=== PATIENT | male | born 1965 | race African-American/Black ===

== ENCOUNTER 2024-04-24 12:48 | Inpatient (IN) | payer OTHER ==
[2024-04-24 13:19] VITALS: BMI 29.8
[2024-04-24] MEDS ORDERED: NALOXONE HCL 0.4 MG/ML VIAL IM PRN (13:41)
[2024-04-24] MEDS ORDERED: MAGNESIUM HYDROX 2400MG/30ML ORAL SUSPENSION 30 ML CUP PO PRN (13:41)
[2024-04-24] MEDS ORDERED: BENZONATATE 200 MG CAPSULE PO PRN (13:41)
[2024-04-24] MEDS ORDERED: BISMUTH SUBSALICYLATE 524 MG/30 ML PO PRN (13:41)
[2024-04-24] MEDS ORDERED: DICYCLOMINE HCL 10 MG CAPSULE PO PRN (13:41)
[2024-04-24] MEDS ORDERED: ACETAMINOPHEN 325 MG TABLET (FP) PO PRN (13:41)
[2024-04-24] MEDS ORDERED: NALOXONE (NARCAN) HCL 4 MG/0.1 ML SPRAY NS PRN (13:41)
[2024-04-24] MEDS ORDERED: POLYETHYLENE GLYCOL (HEALTHYLAX) 3350 17 GM PACKET PO PRN (13:41)
[2024-04-24] MEDS ORDERED: LOPERAMIDE HCL 2 MG CAPSULE PO PRN (13:41)
[2024-04-24] MEDS ORDERED: IBUPROFEN 400 MG TABLET (FP) PO PRN (13:41)
[2024-04-24] MEDS ORDERED: MAG HYDROX/AL HYDROX/SIMETH 30 ML UNIT-DOSE CUP PO PRN (13:41)
[2024-04-24] MEDS ORDERED: IBUPROFEN 600 MG TABLET (FP) PO PRN (13:41)
[2024-04-24] MEDS ORDERED: ONDANSETRON *ODT* 4 MG TABLET SL PRN (13:41)
[2024-04-24] MEDS: METHOCARBAMOL 500 MG TABLET PO PRN (17:34)
[2024-04-24] MEDS: MELATONIN 5 MG TABLETS PO SCH (22:23)
[2024-04-24] MEDS: THIAMINE 100 MG TABLET PO SCH (22:23)
[2024-04-25] MEDS: PRENATAL VITAMINS W/ FOLIC ACID TABLET (FP) PO SCH (09:57)
[2024-04-25] MEDS: guaiFENesin 600 MG TABLET.ER (FP) PO PRN (09:59)
[2024-04-25] MEDS: BENZOCAINE/MENTHOL (CHLORASEPTIC ) LOZENGE MM PRN (09:59)
[2024-04-25] MEDS: diazePAM 5 MG TABLET PO SCH (11:56)
[2024-04-25 11:59] LABS: HEMOGLOBIN 12.1 GM/dL (11.7-16.9); MCH 25.3 pg (25.7-33.7); MCHC 31.8 g/dl (32.0-35.9); MEAN CELL VOLUME 79.6 fl (80-96); PLATELET COUNT 270 10^3/uL (134-434); RBC 4.78 M/mm3 (4.00-5.60); RDW 17.1 % (11.9-15.9)
[2024-04-25 12:03] LABS: CHLORIDE 109 mmol/L (98-107); POTASSIUM 4.5 mmol/L (3.5-5.1); SODIUM 143 mmol/L (136-145)
[2024-04-25 12:06] LABS: GLUCOSE,RANDOM 113 mg/dL (74-106)
[2024-04-25 12:07] LABS: CALCIUM 9.3 mg/dL (8.5-10.1)
[2024-04-25 12:08] LABS: ALBUMIN 3.3 g/dl (3.4-5.0); ANION GAP 6 mmol/L (4-13); BLOOD UREA NITROGEN 18.3 mg/dL (7-18); CO2 28 mmol/L (21-32)
[2024-04-25 12:11] LABS: SGOT/AST 41 U/L (15-37); SGPT/ALT 31 U/L (13-61)
[2024-04-25 12:12] LABS: BILIRUBIN,TOTAL 0.7 mg/dL (0.2-1); TOT PROT 6.6 g/dl (6.4-8.2)
[2024-04-25 12:13] LABS: ALK PHOS 71 U/L (45-117)
[2024-04-25] MEDS: hydrOXYzine PAMOATE 25 MG CAPSULE (FP) PO PRN (12:49)
[2024-04-25] MEDS: diazePAM 5 MG TABLET PO PRN (19:36)
[2024-04-26] MEDS: ACAMPROSATE CALCIUM 333 MG TABLET.DR PO SCH (14:09)
[2024-04-27] MEDS: diazePAM 5 MG TABLET PO SCH (05:16)
[2024-04-28] MEDS: diazePAM 5 MG TABLET PO SCH (05:13)
[2024-04-28 20:52] VITALS: TEMP 97.7
[2024-04-29] MEDS: diazePAM 5 MG TABLET PO ONE (05:20)
[2024-04-29 09:44] VITALS: BP 148/73; PULSE 90; RESP 18
== END 2024-04-29 10:14 | disposition home or self-care (01) | DRG 775 ==
LOC: YASAS 12:48 → Y6N 14:48
PROVIDERS: ADMIT Allergy & Immunology; ATTEND Surgery
PROC: HZ2ZZZZ Detoxification Services for Substance Abuse Treatment (ICD-10-PCS; principal; 2024-04-24)
DX: F10.230 Alcohol dependence with withdrawal, uncomplicated (principal); F10.220 Alcohol dependence with intoxication, uncomplicated
CPT/HCPCS: 36415; 80053; 80305; 80307; 85027; 86780; 93005; 93010